=== PATIENT | male | born 1960 | race Caucasian/White ===

== ENCOUNTER 2022-06-08 01:49 | Emergency (ER) | payer BC ==
[~2022-06-08] VITALS: Ht 185.4 cm; Wt 99.8 kg
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
--- NOTE | 2022-06-08 02:10 | NUR ---
EKG DONE AT BEDSIDE
--- NOTE | 2022-06-08 02:30 | NUR ---
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
[2022-06-08 02:50] LABS: BASOPHILS % (AUTO) 0.6 % (0.0-2.0); EOSINOPHILS % (AUTO) 2.8 % (0.0-6.0); HEMATOCRIT 43 % (39-51); HEMOGLOBIN 14.9 g/dL (13.5-17.5); LYMPHOCYTES # (AUTO) 2.8 K/uL (0.8-4.8); LYMPHOCYTES % (AUTO) 43.5 % (20.0-44.0); MEAN CORPUSCULAR HGB CONC 35 g/dl (31.0-36.0); MEAN CORPUSCULAR VOLUME 90 fL (80-96); MONOCYTES # (AUTO) 0.7 K/uL (0.1-1.30); MONOCYTES % (AUTO) 10.4 % (2.0-12.0); NEUTROPHILS # (AUTO) 2.8 K/uL (1.8-8.9); NEUTROPHILS % (AUTO) 42.7 % (43.0-81.0); PLATELET COUNT (AUTO) 180 K/uL (150-450); RED BLOOD CELL COUNT(AUTO) 4.72 MIL/uL (4.5-6.0); WHITE BLOOD COUNT (AUTO) 6.5 K/uL (4.3-11.0)
[2022-06-08 03:29] LABS: CALCIUM, SERUM 8.9 mg/dL (8.5-10.1); POTASSIUM 3.6 mmol/L (3.5-5.1)
--- NOTE | 2022-06-08 03:52 | NUR ---
Patient discharged to home in stable condition. Written and verbal after care instructions given. Patient verbalizes understanding of instruction.
[2022-06-08 03:57] VITALS: BP 131/84
== END 2022-06-08 03:58 | disposition home or self-care (01) ==
LOC: ER 01:53
DX: R00.2 Palpitations (principal); Z60.2 Problems related to living alone
CPT/HCPCS: 36415; 80048-TC; 84484-TC; 85025-TC